=== PATIENT | female | born 1985 | race Caucasian/White ===

== ENCOUNTER 2018-07-26 17:45 | Emergency (ER) | payer OTHER, SELFPAY ==
[2018-07-26 17:50] VITALS: BP 107/77; PULSE 65; RESP 14; TEMP 36.6; O2SAT 99
[2018-07-26] MEDS: TET,DIPH,PERTUSS(ACELL),VAC/PF 0.5 ML SYRINGE IM (18:05)
--- NOTE | 2018-07-26 18:29 | ED.WOUNDLAC ---
HPI - Wound/Laceration <MILES Andrew - Last Filed: 07/26/18 19:41> General Chief Complaint: Wound/Laceration Stated Complaint: laceration to thumb of left hand Time Seen by Provider: 07/26/18 17:48 Source: patient Mode of arrival: ambulatory Limitations: no limitations History of Present Illness HPI narrative: Patient is a 32-year-old female who presents with her with a chief complaint of laceration to her left thumb. She states she was unpacking boxes and cut herself but [employer] knife. She is a nonsmoker. Her last tetanus was approximately 7-8 years ago, but she is not sure. She denies decreased range of motion of her left thumb. She cleansed her wound with hydrogen peroxide after the injury. States happened approximately 10 min prior to arrival. Related Data Home Medications Medication Instructions Recorded Confirmed No Known Home Medications 07/26/18 07/26/18 Allergies Allergy/AdvReac Type Severity Reaction Status Date / Time clarithromycin [From Biaxin] Allergy Verified 07/26/18 17:52 Penicillins Allergy Verified 07/26/18 17:52 Review of Systems <MILES Andrew - Last Filed: 07/26/18 19:41> Review of Systems GENERAL: Denies chills, fatigue, malaise, fever, sweats. HEENT: Denies sinus pain, ear pain, sore throat, difficulty swallowing, dizziness. RESPIRATORY: Denies dyspnea, cough, wheezing, hemoptysis, sputum. CARDIOVASCULAR: Denies chest pain, palpitations, orthopnea, edema, GASTROINTESTINAL: Denies nausea, vomiting, abdominal pain, diarrhea, constipation, melena. : Denies dysuria, frequency, incontinence, hematuria, urinary retention. MUSCULOSKELETAL: See HPI SKIN: See HPI NEUROLOGIC: Denies weakness, headache, numbness, change in speech, confusion, seizures, incoordination. PSYCHIATRIC: No concerning psychosocial issues. 12 point review of systems is negative except for those stated above Exam <MILES Andrew - Last Filed: 07/26/18 19:41> Narrative Exam Narrative: GENERAL: This is a well-nourished, well-developed patient, in no acute distress HEAD: Atraumatic. Normocephalic. No temporal or scalp tenderness. EYES: Pupils equal round and reactive. Extraocular motions intact. No scleral icterus. No injection or drainage. ENT: Nose without bleeding, purulent drainage or septal hematoma. Throat without erythema, tonsillar hypertrophy or exudate. Uvula midline. Airway patent. NECK: Trachea midline. No JVD or lymphadenopathy. Supple, nontender, no meningeal signs. CARDIOVASCULAR: Regular rate and rhythm RESPIRATORY: No cough. No increased respiratory effort. EXTREMITIES: Full range of motion noted left thumb. Capillary refill less than 2 sec left thumb. BACK: Nontender without deformity or crepitance. No flank tenderness. NEURO: AOx3. SKIN: 0.5 cm laceration on the dorsal aspect of left thumb over interphalangeal joint. Through dermis. No observe tendon or muscle involvement. No spreading erythema. Initial Vital Signs Initial Vital Signs: Vital Signs Temperature 97.8 F 07/26/18 17:50 Pulse Rate 65 07/26/18 17:50 Respiratory Rate 14 07/26/18 17:50 Blood Pressure 107/77 07/26/18 17:50 Pulse Oximetry 99 07/26/18 17:50 <Sterling Levine MD - Last Filed: 07/27/18 00:39> Initial Vital Signs Initial Vital Signs: Vital Signs Temperature 97.8 F 07/26/18 17:50 Pulse Rate 65 07/26/18 17:50 Respiratory Rate 14 07/26/18 17:50 Blood Pressure 107/77 07/26/18 17:50 Pulse Oximetry 99 07/26/18 17:50 Course <ANNA Andrew-BC - Last Filed: 07/26/18 19:41> Orders Ordered: Discontinued Medications Diphtheria/Tetanus/Acell Pertussis (Adacel) 0.5 ml IM .ONCE ONE Stop: 07/26/18 18:00 Last Admin: 07/26/18 18:05 Dose: 0.5 ml Vital Signs - 8 hr 07/26/18 17:50 Temperature 97.8 F Pulse Rate 65 Respiratory Rate 14 Blood Pressure 107/77 Pulse Oximetry 99 <Sterling Levine MD - Last Filed: 07/27/18 00:39> Orders Ordered: Discontinued Medications Diphtheria/Tetanus/Acell Pertussis (Adacel) 0.5 ml IM .ONCE ONE Stop: 07/26/18 18:00 Last Admin: 07/26/18 18:05 Dose: 0.5 ml Vital Signs - 8 hr 07/26/18 17:50 Temperature 97.8 F Pulse Rate 65 Respiratory Rate 14 Blood Pressure 107/77 Pulse Oximetry 99 MDM - Wound/Laceration <MILES Andrew - Last Filed: 07/26/18 19:41> [facility] Narrative Medical decision making narrative: Patient presents with a chief complaint of laceration. The lacerations was cleansed with Hibiclens in the emergency department. Her tetanus was updated. She is neurovascularly intact and has full range of motion of her left thumb. Nursing dressed the wound. Given the size and depth, closure is not needed at this point time. I encouraged her to follow up with primary care provider if she develops any signs of infection including redness, pus or fever. Patient and her no questions or concerns upon discharge. Discharge Plan Departure Patient Disposition: Home Clinical Impression: Laceration Discharge Date/Time: 07/26/18 18:37 Interventions: ED Discharge Assessment Last Done: 07/26/18 18:36 Instructions: Minor Wounds (Alternative Therapy), DI for Minor Laceration Activity Restrictions/Additional Instructions: Please monitor ear laceration for signs and symptoms of infection including redness, pus and fever. Please be evaluated if any of these occur. Come back to emergency department for any acute concerns. We did update your tetanus today. Prescriptions: No Action No Known Home Medications RF: 0 <Sterling Levine MD - Last Filed: 07/27/18 00:39> Cosign ED Attending Stephan Attestation: I was in the ER at the time of this patient's treatment. I was available for verbal academic support assistant or direct patient evaluation if needed. I agree with the evaluation and treatment plan.
== END 2018-07-26 18:37 | disposition home or self-care (01) ==
PROVIDERS: Emergency Provider Nurse Practitioner Family
DX: S61.012A Laceration without foreign body of left thumb without damage to nail, initial encounter (principal); W26.9XXA Contact with unspecified sharp object(s), initial encounter
CPT/HCPCS: 90471; 99283; 90715

== ENCOUNTER → 2020-11-29 15:21 | Outpatient (CLI) | payer OTHER, SELFPAY ==
[2020-11-29 21:35] LABS: Urine N gonorrhoeae NOT DETECTED
[2020-11-29 21:43] LABS: Urine Chlamydia NOT DETECTED
== END ==
PROVIDERS: Visit Provider Obstetrics & Gynecology
DX: Z34.81 Encounter for supervision of other normal pregnancy, first trimester (principal); Z3A.08 8 weeks gestation of pregnancy
CPT/HCPCS: 87491; 87591

== ENCOUNTER → 2020-12-07 13:00 | Outpatient (CLI) | payer OTHER, SELFPAY ==
[2020-12-07 13:32] LABS: Appearance Urine UA CLEAR; Bilirubin Urine UA NEGATIVE (NEGATIVE); Color Urine UA YELLOW; Glucose Urine UA NEGATIVE (Negative); Ketones Urine UA NEGATIVE (NEGATIVE); Leukocyte Esterase Urine UA 1+ (NEGATIVE); Nitrite Urine UA NEGATIVE (Negative); Occult Blood Urine UA 2+ (Negative); Protein Urine UA NEGATIVE (Negative); Specific Gravity Urine UA 1.025 (1.000-1.035); Urobilinogen Urine UA 0.2 E.U./dL (0.2)
[2020-12-07 13:46] LABS: pH Urine UA 5.5 (4.5-8.0)
[2020-12-07 13:51] LABS: Squamous Epithelial Cell Urine 1-5 /HPF (0-5/HPF)
[2020-12-07 13:52] LABS: Culture Indicated Urine Cult Not Indicated
[2020-12-07 13:53] LABS: Bacteria Urine Moderate (10-30); RBC Urine 5-10/HPF (0-5/HPF); Urine Comments CX ALREADY ORDERED; WBC Urine 5-10/HPF (0-5/HPF)
[2020-12-07 14:02] LABS: Add Manual Diff / Slide Review NO; Basophils Absolute Auto 100 /uL (0-100); Basophils Percent Auto 0.6 % (0-2); Eosinophils Absolute Auto 100 /uL (0-450); Eosinophils Percent Auto 0.9 % (2-4); Hematocrit 39.1 % (36-46); Hemoglobin 13.5 g/dL (12.0-16.0); Lymphocytes Absolute Auto 3100 /uL (1100-4500); Lymphocytes Percent Auto 30.1 % (25-40); Mean Corpuscular HGB Conc 34.6 % (30-36); Mean Corpuscular Hemoglobin 32.5 PG (26-34); Mean Corpuscular Volume 94.1 fL (80-100); Monocytes Absolute Auto 700 /uL (0-900); Monocytes Percent Auto 6.8 % (3-14); Neutrophils Absolute Auto 6400 /uL (1500-7000); Neutrophils Percent Auto 61.6 % (50-75); Platelet Count 201 X10^3/uL (150-400); Red Blood Cell Count 4.16 X10^6/uL (4.0-5.2); White Blood Cell Count 10.4 X10^3/uL (4.5-11.0)
[2020-12-07 21:04] LABS: Hepatitis B Surface Antigen NEGATIVE s/c (NEGATIVE); Rubella Antibody IgG 53.9 IU/mL (>15)
[2020-12-07 21:21] LABS: Hep C Virus Ab w/Reflex Quant NEGATIVE s/c (NEGATIVE)
[2020-12-07 21:29] LABS: HIV 1 & 2 Ab/Ag 4th Gen Combo NEGATIVE (NEGATIVE)
[2020-12-08 08:11] LABS: RPR Screen Non Reactive (Non Reactive); Varicella IgG Antibody 1291 index (Immune >165)
== END ==
PROVIDERS: Referring Provider Obstetrics & Gynecology; Visit Provider Obstetrics & Gynecology
DX: O09.521 Supervision of elderly multigravida, first trimester (principal); Z36.0 Encounter for antenatal screening for chromosomal anomalies
CPT/HCPCS: 36415; 80055; 81003; 81015; 81420; 86787; 86803; 86850; 86900; 86901; 87086; 87389

== ENCOUNTER → 2021-01-24 09:40 | Outpatient (CLI) | payer OTHER, SELFPAY ==
[2021-01-27 19:06] LABS: AFP Value 76.7 ng/mL (.); Gest Age on Col Date 16.9 weeks (.); Insulin Dep Diabetes No (.); OSBR Risk 1IN 824 (.); Results Report (.); Test Results *Screen Negative* (.)
== END ==
PROVIDERS: Referring Provider Obstetrics & Gynecology; Visit Provider Obstetrics & Gynecology
DX: Z34.82 Encounter for supervision of other normal pregnancy, second trimester (principal); Z3A.16 16 weeks gestation of pregnancy
CPT/HCPCS: 36415; 82105

== ENCOUNTER → 2021-02-16 08:57 | Outpatient (CLI) | payer OTHER, SELFPAY ==
--- NOTE | 2021-02-16 08:59 | DI.US.S_ITS ---
PROCEDURE: US OB >= 14 WEEKS FETUS INDICATIONS: ANATOMY OUTSIDE/PRIOR DATING DATA: Last menstrual period (LMP): 09/28/2020. LMP-based estimated date of delivery (KELLY): 07/05/2021 . First dating scan (date and location): 11/29/2020 . Estimated date of delivery (KELLY) from first dating scan: 06/30/2021 . TECHNIQUE: Real-time scanning was performed of the fetus, with image documentation and biometric measurements. Endovaginal scanning: No COMPARISON: [facility], , OB <= 14 WEEKS FETUS, 11/29/2020, 13:58. [facility], , OB <= 14 WEEKS FETUS, 12/21/2020, 17:02. FINDINGS: General: A single living intrauterine gestation is present. Presentation: Variable. Placenta: Placental position is left posterior , without previa. Amniotic fluid index: 14.1 cm, normal range is 5-24 cm. heart rate: 158 beats per minute. Maternal cervical canal: 5.8 cm long. Normal lower limit is 2.5 cm. biometrics: Biparietal diameter: 20 weeks 4 days Head circumference: 20 weeks 3 days Abdominal circumference: 21 weeks 2 days Femur length: 20 weeks 4 days Estimated gestational age from initial scan: 20 weeks 6 days Composite gestational age from present scan: 20 weeks 5 days Estimated weight and percentile: 384 g, 46th percentile Measurement variability for biometric dating: +/- 7 days from 14 weeks to 15 weeks 6 days gestation, +/- 10 days from 16 weeks to 21 weeks 6 days gestation, +/- 2 weeks from 22 weeks to 27 weeks 6 days gestation, +/- 3 weeks for 28 weeks gestation or later. weight reference: 4500 g or EFW >90/95% is considered macrosomia or large for gestational age. EFW <10% is small for gestational age. EFW 5% or less is considered intra-uterine growth restriction. Anatomic survey: Neuro: Ventricles are non-dilated at less than 10 mm. Cisterna magna is normal at 3-11 mm. Cerebellum is normal in size and morphology. Nuchal skin fold: Normal at less than 6 mm between 14-21 weeks gestational age. Face: Nose and lips, facial profile are normal. Spine: No evidence for spina bifida. Heart: 4-chambered heart is present, with normal ventricular outflow tracts. Diaphragm: Diaphragm is intact. Stomach: Left-sided stomach is present. Kidneys: No hydronephrosis. Normal is less than 5 mm in 2nd trimester, less than 7 mm in 3rd trimester. Cord: 3-vessel cord has orthotopic insertion. Bladder: Normal in size. Extremities: All 4 extremities identified. IMPRESSION: 1. Normal interval growth. 2. Normal anatomic survey. Dictated by: B[facility]an [facility] Interpreted: Eulalio Christine MD on 02/16/2021 at 12:41 Transcribed by: BRIDGET on 02/16/2021 at 12:43 Approved by: Eulalio Christine M.D. on 02/16/2021 at 15:11
== END ==
PROVIDERS: PCP Student in an Organized Health Care Education/Training Program; Referring Provider Obstetrics & Gynecology; Visit Provider Obstetrics & Gynecology
DX: Z34.82 Encounter for supervision of other normal pregnancy, second trimester (principal); Z3A.20 20 weeks gestation of pregnancy
CPT/HCPCS: 76811

== ENCOUNTER → 2021-03-26 09:50 | Outpatient (CLI) | payer OTHER, SELFPAY ==
[2021-03-26 11:34] LABS: Hematocrit 32.8 % (36-46); Hemoglobin 10.9 g/dL (12.0-16.0)
[2021-03-26 11:37] LABS: GTT (PREG) 1 Hour PP 50gm Dose 121 mg/dL (76-139)
== END ==
PROVIDERS: PCP Student in an Organized Health Care Education/Training Program; Referring Provider Obstetrics & Gynecology; Visit Provider Obstetrics & Gynecology
DX: Z34.82 Encounter for supervision of other normal pregnancy, second trimester (principal); Z3A.24 24 weeks gestation of pregnancy
CPT/HCPCS: 36415; 82950; 85014; 85018

== ENCOUNTER → 2021-05-30 11:19 | Outpatient (CLI) | payer OTHER, SELFPAY ==
[2021-05-31 11:13] LABS: Bile Acids 2.8 umol/L (0.0-10.0)
== END ==
PROVIDERS: PCP Student in an Organized Health Care Education/Training Program; Referring Provider Obstetrics & Gynecology; Visit Provider Obstetrics & Gynecology
DX: O99.719 Diseases of the skin and subcutaneous tissue complicating pregnancy, unspecified trimester (principal); L29.9 Pruritus, unspecified; Z3A.36 36 weeks gestation of pregnancy; R31.9 Hematuria, unspecified
CPT/HCPCS: 36415; 82239; 87086

== ENCOUNTER → 2021-06-11 11:00 | Outpatient (CLI) | payer OTHER, SELFPAY ==
[2021-06-12 19:29] LABS: Strep Grp B PCR NEG for Grp B Strep
== END ==
PROVIDERS: PCP Student in an Organized Health Care Education/Training Program; Visit Provider Obstetrics & Gynecology
DX: Z34.83 Encounter for supervision of other normal pregnancy, third trimester (principal); Z3A.36 36 weeks gestation of pregnancy
CPT/HCPCS: 87653

== ENCOUNTER 2021-06-12 18:09 | Observation (INO) | payer OTHER, SELFPAY | END 2021-06-12 21:24 | disposition home or self-care (01) | PROVIDERS: Admitting Provider Obstetrics & Gynecology; PCP Student in an Organized Health Care Education/Training Program; Referring Provider Obstetrics & Gynecology; Visit Provider Obstetrics & Gynecology | DX: O47.1 False labor at or after 37 completed weeks of gestation (principal); Z3A.37 37 weeks gestation of pregnancy | CPT/HCPCS: 59025; 59050; 84112; G0378; G0379 ==

== ENCOUNTER → 2021-06-18 10:58 | Outpatient (CLI) | payer OTHER, SELFPAY ==
--- NOTE | 2021-06-18 10:59 | DI.US.S_ITS ---
PROCEDURE: US PERIPH VENOUS LOW EXTREM RT INDICATIONS: Rule out DVT TECHNIQUE: Real-time imaging, as well as color and pulse Doppler interrogation, were performed of the lower extremity deep veins from the inguinal ligament to the popliteal fossa. COMPARISON: None. FINDINGS: The common femoral, femoral and popliteal veins are normally compressible, and free of intraluminal thrombus. Color and pulse Doppler demonstrate normal phasic intraluminal flow. There is normal augmentation response to distal compression maneuver. IMPRESSION: No DVT in the right lower extremity. Dictated by: Thomas Pinto M.D. on 06/18/2021 at 11:27 Approved by: Thomas Pinto M.D. on 06/18/2021 at 11:27
== END ==
PROVIDERS: PCP Student in an Organized Health Care Education/Training Program; Referring Provider Obstetrics & Gynecology; Visit Provider Obstetrics & Gynecology
DX: O22.30 Deep phlebothrombosis in pregnancy, unspecified trimester (principal)
CPT/HCPCS: 93971

== ENCOUNTER 2021-06-22 04:14 | Inpatient (IN) | payer OTHER, SELFPAY ==
[2021-06-22 05:43] LABS: Add Manual Diff / Slide Review NO; Basophils Absolute Auto 0 /uL (0-100); Basophils Percent Auto 0.8 % (0-2); Eosinophils Absolute Auto 100 /uL (0-450); Eosinophils Percent Auto 1.2 % (2-4); Hematocrit 33.6 % (36-46); Hemoglobin 11.1 g/dL (12.0-16.0); Lymphocytes Absolute Auto 2700 /uL (1100-4500); Lymphocytes Percent Auto 40.7 % (25-40); Mean Corpuscular Hemoglobin 27.4 PG (26-34); Mean Corpuscular Volume 83.1 fL (80-100); Monocytes Absolute Auto 600 /uL (0-900); Monocytes Percent Auto 9.1 % (3-14); Neutrophils Absolute Auto 3200 /uL (1500-7000); Neutrophils Percent Auto 48.2 % (50-75); Platelet Count 186 X10^3/uL (150-400); Red Blood Cell Count 4.05 X10^6/uL (4.0-5.2); Red Cell Distribution Width 15.6 % (11.6-14.8); White Blood Cell Count 6.6 X10^3/uL (4.5-11.0)
[2021-06-22 05:47] VITALS: BP 118/83
[2021-06-22 06:15] LABS: COVID19 -Nasal RAPID Negative (Negative)
[2021-06-22] MEDS: OXYTOCIN PREMIX 30 UNIT/500 ML PLAST..BAG IV (07:53)
[2021-06-22] MEDS: LACTATED RINGERS 1,000 ML 100 ML IV ×2 (07:53→10:45)
--- NOTE | 2021-06-22 07:57 | P.HPOB_ITS ---
OB HPI Date/Time Date of admission: 06/22/21 Date Patient Seen: 06/22/21 Time Patient Seen: 07:57 History of Present Condition Chief complaint: obs KELLY Calculator Estimated Delivery Date Method Current WG Current Estimate 07/05/21 LMP (Certain) 38w 1d Other Estimates 06/30/21 Ultrasound #1 38w 6d Estimated Gestational Age (weeks): 38+1 : 3 Para: 1 care: good care, initiated at week # (8), number of visits (10) and pounds weight gain (31) Dating criteria OB: LMP confirmed by 1st trimester US Ultrasounds: normal 1st trimester US and normal mid trimester US Obstetrical complications: none Medical complications OB: none Preadmission Labs Last OB Lab Results: Blood Type A Positive 06/22/21 05:25 06/22/21 Antibody Screen Negative 06/22/21 05:25 06/22/21 Hematocrit 33.6 % (36-46) L 06/22/21 05:25 06/22/21 Hemoglobin 11.1 g/dL (12.0-16.0) L 06/22/21 05:25 06/22/21 Hepatitis B Surface Antigen Negative s/c (NEGATIVE) 12/07/20 13:05 12/07/20 Hepatitis C Antibody Negative s/c (NEGATIVE) 12/07/20 13:05 12/07/20 Rubella Antibody 53.9 IU/mL (>15) 12/07/20 13:05 12/07/20 Varicella-Zoster IgG Antibody 1291 index (Immune >165) 12/07/20 13:05 12/07/20 Glucose 1 Hour 121 mg/dL (76-139) 03/26/21 10:01 03/26/21 Group B Streptococcus (PCR) Neg for grp b strep 06/11/21 11:00 06/11/21 -: Chlamydia screen: negative, Gonorrhea screen: negative and Urine: negative -: PAP smear: Normal Genetic Screens: Cell-free DNA: Normal (Normal female) External Labs -: Urine: negative Prior (ies) Past Pregnancies Del. Date GA/Weeks Labor Lgth Wt Sex Route Outcome Anesthesia Place Delv Breastfeed Preg Comp Name 08/03/16 40.0 14 8 lb 5 oz Male vaginal live - full joseph [place], [place] 7 mos., then pumped 2 mos. none Jim benedict Delivery Date: 08/03/16 Last Updated by: Radha Bowles R.N. Long early labor x 12 hrs, sent home twice, almost had him in the parking lot, barely made it back to hospital in time. Evaluation Evaluation Baseline heart rate: 125 Variability: Moderate (11-25) monitor accelerations: Present Monitor Decelerations: Absent Contraction Frequency (minutes): 5 Uterine Contraction Intensity: Mild Status: Category l Dilation (cm): 3 Effacement (%): 75 station: -1 Position of cervix: mid Consistency: soft [facility] Medical History (Updated 05/30/21 @ 14:41 by Zulma Hamilton MD) Bronchitis (~1998) Encounter for IUD removal (~03/2020) Ovarian cyst (~2001) Surgical History History of third molar tooth extraction (~2003) Family History Father Age: 68 Hypertension Hyperlipidemia Grandfather Stroke Guillain-Mascoutah disease Myocardial infarction Mother Age: 64 Depression Anxiety Hyperlipidemia Grandmother No problems noted. Grandmother Cervical cancer Smoker Grandfather Myocardial infarction Social History (System 11/06/20 @ 08:48 by Elizabeth Shen) marital status: number of children: 1 household members: spouse lives independently: No caregiver/support person: Yes housing: house pets and animals: Yes (1 Labradoodle, should be safe. 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 ) current occupational exposures/hazards: No jerrod/shinto: Rastafari special jerrod needs: No seatbelt use: always working smoke detector in home: Yes fire extinguisher in home: Yes carbon monox detector in home: Yes firearms in home: No do you feel safe at home: Yes Smoking Status: Never smoker second hand exposure: No alcohol intake: former (Pre-: Very rarely, maybe once a month.) substance use type: does not use during the past year weight has: remained stable well-balanced diet: daily or most days daily servings fruits/ve-4 caffeine: Yes (Quit w/ r/t aversion.) Type(s) of exercise: bicycling, weight lifting and running frequency: 5-6 times per week duration: 30-45 minutes/day Meds Home Medications and Allergies Home Medications Medication Instructions Recorded Confirmed Type prenat.vits,sravan,wdp-dkag-cfifw 1 tab PO DAILY 11/23/20 06/22/21 History Double Electric breast Pump and #1 ea 05/14/21 06/22/21 Rx Supplies Allergies Allergy/AdvReac Type Severity Reaction Status Date / Time clarithromycin Allergy Mild RASH Verified 06/20/21 08:46 Penicillins Allergy Mild Rash Verified 06/20/21 08:46 OB Exam Narrative Exam Narrative: Generally: Patient lying in bed, no acute distress Lungs: Clear to auscultation bilaterally Cardiovascular: Regular rate and rhythm Fundal height: 38 cm Estimated weight: 7-1/2 lb Extremities: Negative Homans, no edema Objective Labs Result Diagrams: 06/22/21 05:25 Labs: Laboratory Results - last 24 hr 06/22/21 06/22/21 06/22/21 05:25 05:25 05:45 WBC 6.6 RBC 4.05 Hgb 11.1 L Hct 33.6 L MCV 83.1 MCH 27.4 MCHC 33.0 RDW 15.6 H Plt Count 186 Neut % (Auto) 48.2 L Lymph % (Auto) 40.7 H [place] % (Auto) 9.1 Eos % (Auto) 1.2 L Baso % (Auto) 0.8 Neut # (Auto) 3200 Lymph # (Auto) 2700 [place] # (Auto) 600 Eos # (Auto) 100 Baso # (Auto) 0 SARS-CoV-2 (PCR) Negative Blood Type A Positive Antibody Screen Negative Assessment and Plan Assessment and Plan Assessment and Plan narrative: Assessment: 35-year-old 3 para 1 at 38-,1/7 weeks gestation with spontaneous rupture of membranes at 3:00 a.m. Irregular contractions History of precipitous delivery Plan: Pitocin augmentation Expected management to spontaneous vaginal delivery Time Spent with Patient Total time spent with greater than 50% in coordination of care (as documented) at patient's floor/unit and/or counseling patient:: 15-24 minutes
[2021-06-22] MEDS: FENT 2MCG/ML BUPIV 0.125% EPI 200 MCG/100 ML PLAST..BAG 12 MCG EPIDURAL (10:45)
--- NOTE | 2021-06-22 13:33 | P.PCNOB_ITS ---
Events: Labor Augmentation Labor & Delivery Delivery date: 06/22/21 Intrapartal Events: None Cervical ripening method: none Induction method: none Delivery augmentation: pitocin Delivery monitor: external FHT and external uterine Route of delivery: Episiotomy description: None L&D Laceration Description: Perineal - 2nd Degree Delivery repair: vicryl and chromic Estimated blood loss (mL): 250 Anesthesia Type: Epidural Complications: None Narrative: Patient complete and pushed for 30 minutes. At 1:00 p.m., a live female infant delivered spontaneously in the MICHELLE presentation. Nuchal cord x1 was reduced on the perineum. The remainder of the body delivered without difficulty and was placed on mom's abdomen. After the cord stopped pulsing, the cord was double clamped and cut. Cord bloods were obtained. The placenta delivered intact with a three-vessel cord at 1:09 p.m.. Pitocin was given in the IV fluids after the cord was double clamped and cut. The fundus was massaged to firm. A second- degree perineal laceration was repaired in the usual fashion. Estimated blood loss 250 cc. Apgars 7 at 1 minute and 9 at 5 minutes. weight 8 lb 5.8 oz. epidural analgesia. Mom and infant stable to recovery. Baby 1: Infant gender: Female Presentation: vertex Position: Left Occiput Anterior Placenta delivery description: Spontaneous Cord Vessel Description: 3 Vessels and Nuchal Cord (x 1) score (1 min): 7 score (5 min): 9 weight: 8 lb 5 oz Plan for aftercare: Routine care
[2021-06-22] MEDS: IBUPROFEN 600 MG TABLET PO ×2 (17:16→23:16)
[2021-06-23] MEDS: IBUPROFEN 600 MG TABLET PO ×2 (05:18→10:50)
[2021-06-23 05:58] LABS: Hematocrit 28.5 % (36-46); Hemoglobin 9.4 g/dL (12.0-16.0)
[2021-06-23] MEDS: DOCUSATE 100 MG CAPSULE PO (09:00)
[2021-06-23] MEDS: PRENATAL VIT,CALC/IRON/FOLIC 1 TABLET 1 TAB PO (09:01)
[2021-06-23] MEDS: ACETAMINOPHEN 325 MG TABLET 650 MG PO (09:03)
--- NOTE | 2021-06-23 09:48 | P.DS_ITS ---
Discharge Providers Provider Date of admission: 06/22/21 04:14 Discharge Date: 06/23/21 Primary care physician: Monique Puga MD Consults: 06/23/21 13:30 Consult to Exceptional Children Teacher Routine Comment: Discharge provider: Meg Wolf MD Summary Hospital Course Date Patient Seen: 06/23/21 Time Patient Seen: 09:52 Diagnoses: 38 week gestation with spontaneous vaginal delivery and repair of second-degree tear Hospital Course: Patient arrived on Labor and delivery with spontaneous rupture membranes at 38 weeks 1 day. She had Pitocin augmentation of labor. She received an epidural catheter for pain control. She had a spontaneous vaginal delivery with repair of a second-degree perineal tear. She is urinating and ambulating well. She denies headaches, scotomata, epigastric pain. She has minimal pain. She is breast-feeding without difficulty. Peripartum Data Infant Delivery Method: Natural Vaginal Laceration Description: Perineal - 2nd Degree Procedures: Pitocin augmentation of labor, epidural catheter, spontaneous vaginal delivery, repair of second-degree tear complications: none [place] 1: Gender: Female Disposition of : home Discharge Diagnosis (1) Vaginal delivery: Status: Acute Status at Discharge Cognitive/behavioral status at discharge: oriented Functional status at discharge: independent ambulation Overall status at discharge: patient is progressing back to baseline Time Spent with Patient Time attestation: Total time spent providing and/or coordinating discharge services: Time spent: Less than 30 minutes Objective Labs Result Diagrams: 06/23/21 05:45 Labs: Laboratory Results - last 24 hr 06/23/21 05:45 Hgb 9.4 L Hct 28.5 L Exam Vital Signs (past 8 hours): blood pressure 120/76, pulse of 81, temperature 98? Narrative Exam Narrative: Abdomen is soft, nontender. uterus is firm, at U, minimally tender. Mild lochia. Repair is intact. Extremities without edema and nontender. Patient's blood type is O positive, she is rubella immune, she received Tdap in the 3rd trimester. Discharge Plan Discharge Plan Patient Disposition: Home Provider Discharge Comment: patient is to continue taking her [id number] iron Discharge orders & Medications Prescriptions: Continued prenat.vits,sravan,hee-cfdi-weohx Tablet 1 tab PO DAILY 0RF (DME) Double Electric breast Pump and Supplies See Rx Instructions .ROUTE .MEDSUPPLY Qty: 1 0RF Rx Instructions: Use electric breast pump and supplies as directed for 99 months. KELLY 07/05/21. Follow up/Referrals: Zulma Hamilton MD [Physician] - 6 Weeks Monique Puga MD [Primary Care Provider] - Diet/Activity/Treatments Diet: Regular Activity: nothing in vagina for 6 weeks Skin/Wound/Dressing Care Report to your healthcare provider any signs of infection, such as:: chills, fever and increased pain Discharge Data Primary Care Provider: Moniuqe Puga
[2021-06-23 10:15] VITALS: BP 120/76; PULSE 81; RESP 16; TEMP 36.7
== END 2021-06-23 11:18 | disposition home or self-care (01) | DRG 807 ==
PROVIDERS: Admitting Provider Obstetrics & Gynecology; PCP Student in an Organized Health Care Education/Training Program; Referring Provider Obstetrics & Gynecology; Visit Provider Obstetrics & Gynecology
DX: O42.02 Full-term premature rupture of membranes, onset of labor within 24 hours of rupture (principal); Z37.0 Single live birth; O70.1 Second degree perineal laceration during delivery; Z3A.38 38 weeks gestation of pregnancy; O69.81X0 Labor and delivery complicated by cord around neck, without compression, not applicable or unspecified; Z20.822 Contact with and (suspected) exposure to COVID-19
CPT/HCPCS: 01967; 36415; 59050; 59400; 85014; 85018; 85025; 86850; 86900; 86901; 87635; C9803; G0379; J2590; J3010

== ENCOUNTER → 2024-10-28 10:11 | Outpatient (CLI) | payer OTHER, SELFPAY | LOC: LAB 10:12 | PROVIDERS: Obstetrics & Gynecology; PCP Registered Nurse; Referring Provider Registered Nurse; Visit Provider Emergency Medicine | DX: N95.1 Menopausal and female climacteric states (principal) | CPT/HCPCS: 36415; 82397 ==

== ENCOUNTER → 2024-12-08 09:32 | Outpatient (CLI) | payer OTHER, SELFPAY ==
--- NOTE | 2024-12-08 09:33 | DI.MG.S_ITS ---
MM diagnostic mammo BI: 12/08/2024. BI-RADS: 1 CLINICAL: 39-year old female for bilateral diagnostic mammogram. Tyrer-Cuzick lifetime risk of 12.6%. No personal or first-degree family history of breast cancer. The patient reports pain (6 months) in the left breast. PRIOR EXAMS: No prior examinations available. This is a baseline mammogram. MAMMOGRAPHY TECHNIQUE: 2D and 3D (tomosynthesis) digital mammographic views obtained, with additional images as needed for full coverage. Current study was also evaluated with a Computer Aided Detection (CAD) system. DENSITY C. The breasts are heterogeneously dense, which may obscure small masses. MAMMOGRAPHY FINDINGS Bilateral: No suspicious mass, asymmetry, microcalcification, or other abnormality seen. IMPRESSION: * No evidence of malignancy. RECOMMENDATIONS Left * Diffuse, non-focal symptoms, such as pain or fullness are typically benign. Clinical follow-up is recommended, and further management of these symptoms should be based on the results of clinical evaluation. If diffuse symptoms persist or become more focal in nature, further clinical evaluation should be considered. Bilateral * Annual screening mammography. OVERALL ASSESSMENT CATEGORY BI-RADS-1: Negative. The [employer] recommends annual screening mammography beginning at age 40 for women with average risk of breast cancer. ELECTRONICALLY SIGNED: Morris Weaver M.D. on 12/08/2024 at 10:04:46 PM PT Interpreting Station ID: [id number]
== END ==
LOC: MAMMO 09:33
PROVIDERS: PCP Registered Nurse; Referring Provider Obstetrics & Gynecology; Visit Provider Obstetrics & Gynecology
DX: N64.4 Mastodynia (principal); R92.333 Mammographic heterogeneous density, bilateral breasts
CPT/HCPCS: 77066; G0279